=== PATIENT | female | born 1990 | race Caucasian/White ===

== ENCOUNTER 2017-12-01 13:18 | Emergency (ER) | payer SELFPAY ==
[~2017-12-01] VITALS: Ht 160 cm; Wt 59.0 kg
[~2017-12-01 13:18] MED LIST: IBUPROFEN 200MG TABLET ONE
[2017-12-01 13:36] VITALS: BP 109/74
[2017-12-01] MEDS ORDERED: IBUPROFEN 600MG TABLET PO ONE (13:45)
== END 2017-12-01 15:34 | disposition home or self-care (01) ==
LOC: ER 15:26
DX: K08.89 Other specified disorders of teeth and supporting structures (principal); J02.9 Acute pharyngitis, unspecified
CPT/HCPCS: 99283